=== PATIENT | female | born 1985 | race Caucasian/White ===

== ENCOUNTER 2016-09-27 01:15 | Emergency (ER) | payer SELFPAY ==
[~2016-09-27] VITALS: Ht 154.9 cm; Wt 66.0 kg
[2016-09-27 01:45] VITALS: BP 124/69
== END 2016-09-27 02:50 | disposition home or self-care (01) ==
LOC: ER 01:20
DX: Z04.8 Encounter for examination and observation for other specified reasons (principal); F31.9 Bipolar disorder, unspecified; F20.9 Schizophrenia, unspecified; F17.210 Nicotine dependence, cigarettes, uncomplicated; F14.10 Cocaine abuse, uncomplicated
CPT/HCPCS: 81025; 99283